=== PATIENT | female | born 1965 | race Caucasian/White ===

== ENCOUNTER → 2016-03-12 | Outpatient (CLI) | payer OTHER ==
[~2016-03-12] MED LIST: 'CLONIDINE0.1 MG PO; ASPIRIN ADULT L81 M2 PO; ATIVAN0.5 MG PO; ATORVASTATIN CA80 M1 PO; CELEXA10 MG PO; CHERATUSSIN AC240 ML PO; CIPRO500 MG PO; CLONIDINE HYDR0.1 MG PO; DICLOFENAC POTA50 MG PO; FINACEA15% T; HYDROCODONE BIT1 T11 PO; LISINOPRIL20 MG PO; LOPRESSOR50 MG PO; METOPROLOL TART50 M1 PO; NAPROSYN500 MG PO; NORCO 325 MG-51 TAB PO; OMEPRAZOLE40 MG PO; ORACEA40 MG PO; PEN-VK500 MG PO; PERCOCET 325 MG1 TA2 PO; PERIDEX 480 ML480 ML PO; PREDNISONE10 MG PO; PROVENTIL0.09 MG/A1 INH; TOPAMAX25 M3 PO; ZITHROMAX TRI-500 M1 PO; ZOFRAN4 MG PO; ZOLOFT25 MG PO
== END | disposition home or self-care (01) ==
LOC: US 08:53
DX: K80.20 Calculus of gallbladder without cholecystitis without obstruction (principal); R16.0 Hepatomegaly, not elsewhere classified; K76.0 Fatty (change of) liver, not elsewhere classified

== ENCOUNTER → 2016-07-07 | Outpatient (CLI) | payer OTHER | END | disposition home or self-care (01) | LOC: US 10:00 | DX: M79.604 Pain in right leg (principal) ==

== ENCOUNTER 2017-02-06 19:36 | Emergency (ER) | payer OTHER ==
[~2017-02-06] VITALS: Ht 170.1 cm; Wt 113.4 kg
== END 2017-02-06 21:34 | disposition home or self-care (01) ==
LOC: ED 19:36
DX: G89.29 Other chronic pain (principal); M25.562 Pain in left knee; M17.0 Bilateral primary osteoarthritis of knee; Z79.899 Other long term (current) drug therapy

== ENCOUNTER → 2017-02-18 | Outpatient (CLI) | payer OTHER ==
[2017-02-21 12:06] LABS: ANA DIRECT Negative (Negative)
[2017-02-21 21:05] LABS: CCP ANTIBODIES IGG/IGA 6 units (0-19)
== END | disposition home or self-care (01) ==
LOC: LAB 13:25
PROVIDERS: Internal Medicine
DX: M25.562 Pain in left knee (principal)

== ENCOUNTER → 2017-03-22 | Outpatient (CLI) | payer OTHER | END | disposition home or self-care (01) | LOC: ORTHO 00:38 | DX: M17.12 Unilateral primary osteoarthritis, left knee (principal) ==

== ENCOUNTER → 2017-07-25 | Outpatient (CLI) | payer OTHER ==
[2017-07-26 11:06] LABS: ANTI-DSDNA ANTIBODIES 096339 <1 IU/mL (0-9)
== END | disposition home or self-care (01) ==
LOC: LAB 14:11
PROVIDERS: Internal Medicine
DX: R21 Rash and other nonspecific skin eruption (principal)

== ENCOUNTER 2017-11-02 13:02 | Emergency (ER) | payer OTHER ==
[~2017-11-02] VITALS: Ht 175.2 cm; Wt 136.1 kg
[2017-11-02] MEDS ORDERED: DOXYCYCLINE100 M3 PO (14:37)
[2017-11-02] MEDS ORDERED: IBUPROFEN600 MG PO (14:37)
== END 2017-11-02 14:41 | disposition home or self-care (01) ==
LOC: ED 13:02
DX: S70.362A Insect bite (nonvenomous), left thigh, initial encounter (principal); L08.9 Local infection of the skin and subcutaneous tissue, unspecified; Z79.899 Other long term (current) drug therapy; W57.XXXA Bitten or stung by nonvenomous insect and other nonvenomous arthropods, initial encounter; Y93.89 Activity, other specified; Y92.89 Other specified places as the place of occurrence of the external cause; Y99.8 Other external cause status

== ENCOUNTER → 2017-11-15 | Outpatient (CLI) | payer OTHER ==
[~2017-11-15] MED LIST changes: +DOXYCYCLINE100 M3 PO; +IBUPROFEN600 MG PO
== END | disposition home or self-care (01) ==
LOC: US 06:13
DX: K76.0 Fatty (change of) liver, not elsewhere classified (principal); K80.20 Calculus of gallbladder without cholecystitis without obstruction

== ENCOUNTER → 2018-02-08 | Outpatient (CLI) | payer SELFPAY | END | disposition home or self-care (01) | LOC: RESCLI 04:09 | DX: E66.01 Morbid (severe) obesity due to excess calories (principal); I10 Essential (primary) hypertension; K21.9 Gastro-esophageal reflux disease without esophagitis; F32.9 Major depressive disorder, single episode, unspecified; R53.82 Chronic fatigue, unspecified; L65.9 Nonscarring hair loss, unspecified; Z79.899 Other long term (current) drug therapy; Z90.710 Acquired absence of both cervix and uterus; Z87.891 Personal history of nicotine dependence; Z88.2 Allergy status to sulfonamides ==

== ENCOUNTER → 2018-06-26 | Outpatient (CLI) | payer SELFPAY | END | disposition home or self-care (01) | LOC: RESCLI 00:44 | DX: K21.9 Gastro-esophageal reflux disease without esophagitis (principal); I10 Essential (primary) hypertension; E66.01 Morbid (severe) obesity due to excess calories; F32.9 Major depressive disorder, single episode, unspecified; R53.83 Other fatigue; L71.9 Rosacea, unspecified; J30.2 Other seasonal allergic rhinitis; Z68.42 Body mass index [BMI] 45.0-49.9, adult; Z87.891 Personal history of nicotine dependence ==

== ENCOUNTER → 2018-10-30 | Outpatient (CLI) | payer SELFPAY ==
[2018-10-30 08:41] LABS: BASO % 0.6 % (0.0-1.0); EOS # 0.1 10*3/uL (0.0-0.4); EOS % 1.4 % (1.0-4.0); HEMATOCRIT 39.8 % (37.0-47.0); LYMPH # 1.7 10*3/uL (1.3-4.4); LYMPH % 32.2 % (27.0-41.0); MEAN CELL VOLUME 91.1 fl (81.0-99.0); MEAN CORPUSCULAR HGB CONC 35.2 g/dl (33.0-37.0); MEAN PLATELET VOLUME 10.2 fl (9.6-12.3); MONO # 0.4 10*3/uL (0.1-1.0); MONO % 7.3 % (3.0-9.0); NEUT % 58.3 % (47.0-73.0); PLATELET COUNT AUTOMATED 198 10*3/uL (130-400); RED BLOOD COUNT 4.37 10*6/uL (4.10-5.10); RED CELL DISTRI WIDTH 13.1 % (0-14.5); WHITE BLOOD COUNT 5.2 10*3/uL (4.8-10.8)
[2018-10-30 09:04] LABS: ALBUMIN 3.9 gm/dl (3.1-4.5); BUN 8 mg/dl (7-24); CHLORIDE 94 mmol/L (98-107); POTASSIUM 3.6 mmol/L (3.5-5.1); SODIUM 132 mmol/L (136-145)
[2018-10-30 09:08] LABS: ALKALINE PHOSPHATASE 134 U/L (45-117); CHOLESTEROL 220 mg/dL (<200); CREATININE 0.66 mg/dL (0.55-1.02); HDL CHOLESTEROL 36 mg/dl (40-60); SGOT/AST 16 IU/L (3-35); SGPT/ALT 23 U/L (12-78); TOTAL PROTEIN 7.5 gm/dL (6.4-8.2); TRIGLYCERIDES 447 mg/dl (<150)
[2018-10-30 09:23] LABS: VITAMIN D, 25-HYDROXY 6.9 ng/mL (30-100)
== END | disposition home or self-care (01) ==
LOC: LAB 07:04
PROVIDERS: Internal Medicine
DX: R53.82 Chronic fatigue, unspecified (principal)

== ENCOUNTER → 2018-11-06 | Outpatient (CLI) | payer SELFPAY | END | disposition home or self-care (01) | LOC: RESCLI 01:27 | DX: M17.12 Unilateral primary osteoarthritis, left knee (principal); E66.01 Morbid (severe) obesity due to excess calories; M23.204 Derangement of unspecified medial meniscus due to old tear or injury, left knee; I10 Essential (primary) hypertension; K21.9 Gastro-esophageal reflux disease without esophagitis; F32.9 Major depressive disorder, single episode, unspecified; R53.82 Chronic fatigue, unspecified; L71.9 Rosacea, unspecified; J30.2 Other seasonal allergic rhinitis; E11.39 Type 2 diabetes mellitus with other diabetic ophthalmic complication; E78.2 Mixed hyperlipidemia; E55.9 Vitamin D deficiency, unspecified; Z79.899 Other long term (current) drug therapy ==

== ENCOUNTER → 2018-11-27 | Outpatient (CLI) | payer SELFPAY | END | disposition home or self-care (01) | LOC: RESCLI 01:43 | DX: M17.12 Unilateral primary osteoarthritis, left knee (principal); E66.01 Morbid (severe) obesity due to excess calories; M23.204 Derangement of unspecified medial meniscus due to old tear or injury, left knee; I10 Essential (primary) hypertension; K21.9 Gastro-esophageal reflux disease without esophagitis; F32.9 Major depressive disorder, single episode, unspecified; R53.82 Chronic fatigue, unspecified; L71.9 Rosacea, unspecified; J30.2 Other seasonal allergic rhinitis; E11.39 Type 2 diabetes mellitus with other diabetic ophthalmic complication; E78.2 Mixed hyperlipidemia; E55.9 Vitamin D deficiency, unspecified; Z79.899 Other long term (current) drug therapy ==

== ENCOUNTER → 2019-03-15 | Outpatient (CLI) | payer SELFPAY | END | disposition home or self-care (01) | LOC: RESCLI 00:39 | DX: I10 Essential (primary) hypertension (principal); E11.39 Type 2 diabetes mellitus with other diabetic ophthalmic complication; E78.2 Mixed hyperlipidemia; Z79.4 Long term (current) use of insulin; Z90.710 Acquired absence of both cervix and uterus; Z88.8 Allergy status to other drugs, medicaments and biological substances ==

== ENCOUNTER → 2019-09-19 | Outpatient (CLI) | payer SELFPAY | END | disposition home or self-care (01) | LOC: RESCLI 04:58 | DX: E11.39 Type 2 diabetes mellitus with other diabetic ophthalmic complication (principal); G62.9 Polyneuropathy, unspecified; I10 Essential (primary) hypertension; F32.9 Major depressive disorder, single episode, unspecified; R53.82 Chronic fatigue, unspecified; J30.2 Other seasonal allergic rhinitis; E55.9 Vitamin D deficiency, unspecified; F41.9 Anxiety disorder, unspecified; E78.5 Hyperlipidemia, unspecified; F10.10 Alcohol abuse, uncomplicated; R19.7 Diarrhea, unspecified; E66.01 Morbid (severe) obesity due to excess calories; Z68.42 Body mass index [BMI] 45.0-49.9, adult; Z79.899 Other long term (current) drug therapy; Z79.84 Long term (current) use of oral hypoglycemic drugs; Z90.710 Acquired absence of both cervix and uterus; Z98.51 Tubal ligation status; Z88.8 Allergy status to other drugs, medicaments and biological substances ==

== ENCOUNTER → 2019-10-17 | Outpatient (CLI) | payer SELFPAY ==
[2019-10-17 08:18] LABS: BASO % 0.4 % (0.0-1.0); EOS # 0.1 10*3/uL (0.0-0.4); EOS % 0.7 % (1.0-4.0); HEMATOCRIT 44.5 % (37.0-47.0); LYMPH # 1.4 10*3/uL (1.3-4.4); LYMPH % 19.9 % (27.0-41.0); MEAN CELL VOLUME 93.1 fl (81.0-99.0); MEAN CORPUSCULAR HGB 30.5 pg (27.0-31.0); MEAN CORPUSCULAR HGB CONC 32.8 g/dl (33.0-37.0); MEAN PLATELET VOLUME 9.7 fl (9.6-12.3); MONO # 0.5 10*3/uL (0.1-1.0); MONO % 6.5 % (3.0-9.0); NEUT # 5.2 10*3/uL (2.3-7.9); NEUT % 71.9 % (47.0-73.0); PLATELET COUNT AUTOMATED 201 10*3/uL (130-400); RED BLOOD COUNT 4.78 10*6/uL (4.10-5.10); RED CELL DISTRI WIDTH 12.2 % (0-14.5); WHITE BLOOD COUNT 7.2 10*3/uL (4.8-10.8)
[2019-10-17 08:43] LABS: ALBUMIN 3.6 gm/dl (3.1-4.5); ALKALINE PHOSPHATASE 126 U/L (45-117); BUN 15 mg/dl (7-24); CHLORIDE 104 mmol/L (98-107); CHOLESTEROL 145 mg/dL (<200); CREATININE 0.81 mg/dL (0.55-1.02); HDL CHOLESTEROL 35 mg/dl (40-60); LDL CHOLESTEROL 76 mg/dL (9-159); LIPASE 125 U/L (73-393); SGOT/AST 39 IU/L (3-35); SGPT/ALT 58 U/L (12-78); SODIUM 139 mmol/L (136-145); TOTAL PROTEIN 7.8 gm/dL (6.4-8.2); TRIGLYCERIDES 172 mg/dl (<150); VLDL CHOLESTEROL 34 mg/dL (6-40)
[2019-10-17 09:25] LABS: VITAMIN D, 25-HYDROXY 30.5 ng/mL (30-100)
== END ==
LOC: LAB 07:57
PROVIDERS: Hospitalist; ATTEND Internal Medicine Nephrology
DX: E11.39 Type 2 diabetes mellitus with other diabetic ophthalmic complication (principal)

== ENCOUNTER → 2019-10-23 | Outpatient (CLI) | payer SELFPAY | END | disposition home or self-care (01) | LOC: RESCLI 02:07 | PROVIDERS: ATTEND Internal Medicine Nephrology | DX: T21.02XA Burn of unspecified degree of abdominal wall, initial encounter (principal); R19.7 Diarrhea, unspecified; I10 Essential (primary) hypertension; K21.9 Gastro-esophageal reflux disease without esophagitis; E11.39 Type 2 diabetes mellitus with other diabetic ophthalmic complication; E55.9 Vitamin D deficiency, unspecified; G62.9 Polyneuropathy, unspecified; F41.9 Anxiety disorder, unspecified; F10.10 Alcohol abuse, uncomplicated; F32.9 Major depressive disorder, single episode, unspecified; E78.5 Hyperlipidemia, unspecified; Z79.899 Other long term (current) drug therapy; Z98.890 Other specified postprocedural states; Z88.8 Allergy status to other drugs, medicaments and biological substances ==

== ENCOUNTER → 2019-11-28 | Outpatient (CLI) | payer SELFPAY | END | disposition home or self-care (01) | LOC: RESCLI 01:56 | PROVIDERS: ATTEND Internal Medicine | DX: Z23 Encounter for immunization (principal); I10 Essential (primary) hypertension; K21.9 Gastro-esophageal reflux disease without esophagitis; E11.43 Type 2 diabetes mellitus with diabetic autonomic (poly)neuropathy; E78.5 Hyperlipidemia, unspecified; R21 Rash and other nonspecific skin eruption; E55.9 Vitamin D deficiency, unspecified; G62.9 Polyneuropathy, unspecified; F33.2 Major depressive disorder, recurrent severe without psychotic features; F41.9 Anxiety disorder, unspecified; F10.10 Alcohol abuse, uncomplicated; Z79.4 Long term (current) use of insulin ==

== ENCOUNTER → 2019-12-30 | Outpatient (CLI) | payer SELFPAY | END | disposition home or self-care (01) | LOC: US 12-20 08:30 | PROVIDERS: ATTEND Internal Medicine Nephrology | DX: K76.0 Fatty (change of) liver, not elsewhere classified (principal); K80.20 Calculus of gallbladder without cholecystitis without obstruction ==

== ENCOUNTER → 2020-02-06 | Outpatient (CLI) | payer SELFPAY | END | disposition home or self-care (01) | LOC: RESCLI 05:10 | PROVIDERS: ATTEND Internal Medicine | DX: I10 Essential (primary) hypertension (principal); K21.9 Gastro-esophageal reflux disease without esophagitis; E11.43 Type 2 diabetes mellitus with diabetic autonomic (poly)neuropathy; F41.9 Anxiety disorder, unspecified; E78.5 Hyperlipidemia, unspecified; F10.10 Alcohol abuse, uncomplicated; E55.9 Vitamin D deficiency, unspecified; R74.01 Elevation of levels of liver transaminase levels; G62.9 Polyneuropathy, unspecified; F33.2 Major depressive disorder, recurrent severe without psychotic features; J30.2 Other seasonal allergic rhinitis; K80.20 Calculus of gallbladder without cholecystitis without obstruction; K76.0 Fatty (change of) liver, not elsewhere classified; Z79.4 Long term (current) use of insulin; Z79.899 Other long term (current) drug therapy; Z88.8 Allergy status to other drugs, medicaments and biological substances ==

== ENCOUNTER → 2020-03-30 | Outpatient (CLI) | payer SELFPAY | END | disposition home or self-care (01) | LOC: COVID19 09:08 | PROVIDERS: ATTEND Social Worker Clinical | DX: U07.1 COVID-19 (principal) ==

== ENCOUNTER → 2020-07-27 | Outpatient (CLI) | payer SELFPAY | END | disposition home or self-care (01) | LOC: RESCLI 01:48 | PROVIDERS: ATTEND Internal Medicine Nephrology | DX: L71.9 Rosacea, unspecified (principal); I10 Essential (primary) hypertension; K21.9 Gastro-esophageal reflux disease without esophagitis; K76.0 Fatty (change of) liver, not elsewhere classified; Z90.710 Acquired absence of both cervix and uterus; Z98.51 Tubal ligation status; Z98.890 Other specified postprocedural states; Z79.899 Other long term (current) drug therapy ==

== ENCOUNTER → 2020-09-10 | Outpatient (CLI) | payer MEDICARE | END | disposition home or self-care (01) | LOC: RESCLI 06:40 | PROVIDERS: ATTEND Internal Medicine | DX: H60.321 Hemorrhagic otitis externa, right ear (principal); L71.9 Rosacea, unspecified; J30.2 Other seasonal allergic rhinitis; E55.9 Vitamin D deficiency, unspecified; F41.9 Anxiety disorder, unspecified; F32.9 Major depressive disorder, single episode, unspecified; E11.43 Type 2 diabetes mellitus with diabetic autonomic (poly)neuropathy; K21.9 Gastro-esophageal reflux disease without esophagitis; F10.10 Alcohol abuse, uncomplicated; I10 Essential (primary) hypertension; G62.9 Polyneuropathy, unspecified; E78.5 Hyperlipidemia, unspecified; Z79.899 Other long term (current) drug therapy; Z98.890 Other specified postprocedural states; Z88.8 Allergy status to other drugs, medicaments and biological substances; Z98.51 Tubal ligation status; Z90.710 Acquired absence of both cervix and uterus ==

== ENCOUNTER → 2020-10-15 | Outpatient (CLI) | payer MEDICARE | END | disposition home or self-care (01) | LOC: RESCLI 00:19 | PROVIDERS: ATTEND Internal Medicine | DX: L71.9 Rosacea, unspecified (principal); F32.9 Major depressive disorder, single episode, unspecified; I10 Essential (primary) hypertension; E55.9 Vitamin D deficiency, unspecified; F41.9 Anxiety disorder, unspecified; E11.43 Type 2 diabetes mellitus with diabetic autonomic (poly)neuropathy; F10.10 Alcohol abuse, uncomplicated; E78.5 Hyperlipidemia, unspecified; J30.2 Other seasonal allergic rhinitis; K21.9 Gastro-esophageal reflux disease without esophagitis; I83.93 Asymptomatic varicose veins of bilateral lower extremities; Z87.891 Personal history of nicotine dependence; Z79.899 Other long term (current) drug therapy ==

== ENCOUNTER → 2020-11-30 | Outpatient (CLI) | payer MEDICARE | END | disposition home or self-care (01) | LOC: US 11-23 11:00 | PROVIDERS: ATTEND Internal Medicine Nephrology | DX: I83.893 Varicose veins of bilateral lower extremities with other complications (principal) ==

== ENCOUNTER → 2020-12-30 | Outpatient (CLI) | payer MEDICARE | END | disposition home or self-care (01) | LOC: RESCLI 00:58 | PROVIDERS: ATTEND Internal Medicine Nephrology | DX: L71.9 Rosacea, unspecified (principal); F32.9 Major depressive disorder, single episode, unspecified; I10 Essential (primary) hypertension; E55.9 Vitamin D deficiency, unspecified; F41.9 Anxiety disorder, unspecified; E11.43 Type 2 diabetes mellitus with diabetic autonomic (poly)neuropathy; F10.10 Alcohol abuse, uncomplicated; E78.5 Hyperlipidemia, unspecified; J30.2 Other seasonal allergic rhinitis; K21.9 Gastro-esophageal reflux disease without esophagitis; I83.93 Asymptomatic varicose veins of bilateral lower extremities; G62.9 Polyneuropathy, unspecified; Z79.899 Other long term (current) drug therapy; Z98.890 Other specified postprocedural states ==

== ENCOUNTER → 2021-05-19 | Outpatient (CLI) | payer MEDICARE | END | disposition home or self-care (01) | LOC: RESCLI 01:16 | PROVIDERS: ATTEND Internal Medicine Nephrology | DX: I10 Essential (primary) hypertension (principal); F32.9 Major depressive disorder, single episode, unspecified; L71.9 Rosacea, unspecified; E11.43 Type 2 diabetes mellitus with diabetic autonomic (poly)neuropathy; K21.9 Gastro-esophageal reflux disease without esophagitis; F10.10 Alcohol abuse, uncomplicated; K76.0 Fatty (change of) liver, not elsewhere classified; E78.5 Hyperlipidemia, unspecified; Z79.899 Other long term (current) drug therapy ==

== ENCOUNTER → 2021-09-06 | Outpatient (CLI) | payer MEDICARE ==
[2021-09-06 10:37] LABS: BASO % 0.3 % (0.0-1.0); HEMATOCRIT 42.8 % (37.0-47.0); LYMPH # 1.7 10*3/uL (1.3-4.4); LYMPH % 22.2 % (27.0-41.0); MEAN CELL VOLUME 92.6 fl (81.0-99.0); MEAN CORPUSCULAR HGB 31.8 pg (27.0-31.0); MEAN CORPUSCULAR HGB CONC 34.3 g/dl (33.0-37.0); MEAN PLATELET VOLUME 9.4 fl (9.6-12.3); MONO # 0.5 10*3/uL (0.1-1.0); MONO % 6.3 % (3.0-9.0); NEUT # 5.4 10*3/uL (2.3-7.9); NEUT % 70.5 % (47.0-73.0); PLATELET COUNT AUTOMATED 166 10*3/uL (130-400); RED BLOOD COUNT 4.62 10*6/uL (4.10-5.10); WHITE BLOOD COUNT 7.7 10*3/uL (4.8-10.8)
[2021-09-06 10:57] LABS: BUN 16 mg/dl (7-24); CHLORIDE 101 mmol/L (98-107); CHOLESTEROL 139 mg/dL (<200); CREATININE 0.79 mg/dL (0.55-1.02); POTASSIUM 4.4 mmol/L (3.5-5.1); SGOT/AST 21 IU/L (3-35); SGPT/ALT 37 U/L (12-78); SODIUM 137 mmol/L (136-145); TRIGLYCERIDES 155 mg/dl (<150)
[2021-09-06 11:07] LABS: ALKALINE PHOSPHATASE 104 U/L (45-117); LDL CHOLESTEROL 70 mg/dL (9-159); TOTAL PROTEIN 7.9 gm/dL (6.4-8.2)
[2021-09-06 12:04] LABS: VITAMIN D, 25-HYDROXY 34.6 ng/mL (30-100)
== END | disposition home or self-care (01) ==
LOC: RESCLI 04:24 → LAB 04:24 → RESCLI 18:13
PROVIDERS: Student in an Organized Health Care Education/Training Program; ATTEND Internal Medicine
DX: E11.39 Type 2 diabetes mellitus with other diabetic ophthalmic complication (principal); I10 Essential (primary) hypertension; E55.9 Vitamin D deficiency, unspecified; E66.01 Morbid (severe) obesity due to excess calories; F32.9 Major depressive disorder, single episode, unspecified; E11.43 Type 2 diabetes mellitus with diabetic autonomic (poly)neuropathy; F41.9 Anxiety disorder, unspecified; L71.9 Rosacea, unspecified; G62.9 Polyneuropathy, unspecified; E78.5 Hyperlipidemia, unspecified; J30.2 Other seasonal allergic rhinitis; Z12.39 Encounter for other screening for malignant neoplasm of breast; R21 Rash and other nonspecific skin eruption; M17.0 Bilateral primary osteoarthritis of knee; Z79.899 Other long term (current) drug therapy; Z88.8 Allergy status to other drugs, medicaments and biological substances; Z90.710 Acquired absence of both cervix and uterus

== ENCOUNTER → 2021-12-09 | Outpatient (CLI) | payer MEDICARE ==
[2021-12-10 11:07] LABS: CREATININE,URINE 47.1 mg/dL (Not Estab.)
== END | disposition home or self-care (01) ==
LOC: RESCLI 09:06
PROVIDERS: Student in an Organized Health Care Education/Training Program; ATTEND Emergency Medicine
DX: E11.43 Type 2 diabetes mellitus with diabetic autonomic (poly)neuropathy (principal); F10.10 Alcohol abuse, uncomplicated; F41.9 Anxiety disorder, unspecified; E78.5 Hyperlipidemia, unspecified; E55.9 Vitamin D deficiency, unspecified; F32.9 Major depressive disorder, single episode, unspecified; L71.9 Rosacea, unspecified; I10 Essential (primary) hypertension; K21.9 Gastro-esophageal reflux disease without esophagitis; G62.9 Polyneuropathy, unspecified; R21 Rash and other nonspecific skin eruption; K43.2 Incisional hernia without obstruction or gangrene; Z90.710 Acquired absence of both cervix and uterus; Z98.890 Other specified postprocedural states; Z82.49 Family history of ischemic heart disease and other diseases of the circulatory system; Z87.891 Personal history of nicotine dependence; Z72.89 Other problems related to lifestyle; Z79.899 Other long term (current) drug therapy

== ENCOUNTER → 2022-03-11 | Outpatient (CLI) | payer MEDICARE | END | disposition home or self-care (01) | LOC: LAB 12:59 | PROVIDERS: ATTEND Student in an Organized Health Care Education/Training Program | DX: E11.43 Type 2 diabetes mellitus with diabetic autonomic (poly)neuropathy (principal) ==

== ENCOUNTER → 2022-03-28 | Outpatient (CLI) | payer MEDICARE ==
[2022-03-28 12:18] LABS: BILIRUBIN Negative (Negative); BLOOD Negative (Negative); CLARITY Clear (Clear); COLOR Yellow (Yellow); GLUCOSE 3+ (Negative); KETONE Trace (Negative); LEUKO ESTERASE Negative (Negative); NITRITE Negative (Negative); SPECIFIC GRAVITY >= 1.030 (1.001-1.030)
[2022-03-28 12:35] LABS: BACTERIA TRACE; WBC 0-2 wbc/hpf (0-5)
[2022-03-28 12:36] LABS: YEAST TRACE
== END | disposition home or self-care (01) ==
LOC: RESCLI 11:42
PROVIDERS: Student in an Organized Health Care Education/Training Program; ATTEND Internal Medicine
DX: E11.43 Type 2 diabetes mellitus with diabetic autonomic (poly)neuropathy (principal); N30.90 Cystitis, unspecified without hematuria; I10 Essential (primary) hypertension; F32.A Depression, unspecified; K76.0 Fatty (change of) liver, not elsewhere classified; K40.90 Unilateral inguinal hernia, without obstruction or gangrene, not specified as recurrent; Z82.49 Family history of ischemic heart disease and other diseases of the circulatory system; Z90.710 Acquired absence of both cervix and uterus; Z98.890 Other specified postprocedural states; Z72.89 Other problems related to lifestyle; Z79.899 Other long term (current) drug therapy

== ENCOUNTER → 2022-05-23 | Outpatient (CLI) | payer OTHER, MEDICARE | END | disposition home or self-care (01) | LOC: RESCLI 00:36 | PROVIDERS: ATTEND Family Medicine | DX: E11.43 Type 2 diabetes mellitus with diabetic autonomic (poly)neuropathy (principal); I10 Essential (primary) hypertension; E55.9 Vitamin D deficiency, unspecified; F10.10 Alcohol abuse, uncomplicated; F32.9 Major depressive disorder, single episode, unspecified; E78.5 Hyperlipidemia, unspecified; G62.9 Polyneuropathy, unspecified; L71.9 Rosacea, unspecified; K21.9 Gastro-esophageal reflux disease without esophagitis; E66.01 Morbid (severe) obesity due to excess calories; Z12.39 Encounter for other screening for malignant neoplasm of breast; Z68.41 Body mass index [BMI] 40.0-44.9, adult; Z98.890 Other specified postprocedural states; Z72.89 Other problems related to lifestyle; Z82.49 Family history of ischemic heart disease and other diseases of the circulatory system; Z90.710 Acquired absence of both cervix and uterus; Z79.899 Other long term (current) drug therapy ==

== ENCOUNTER → 2022-08-22 | Outpatient (CLI) | payer OTHER | END | disposition home or self-care (01) | LOC: LAB 14:17 | PROVIDERS: ATTEND Student in an Organized Health Care Education/Training Program | DX: E11.43 Type 2 diabetes mellitus with diabetic autonomic (poly)neuropathy (principal) ==

== ENCOUNTER → 2022-08-25 | Outpatient (CLI) | payer OTHER | END | disposition home or self-care (01) | LOC: RESCLI 08:34 | PROVIDERS: ATTEND Internal Medicine | DX: F32.9 Major depressive disorder, single episode, unspecified (principal); E11.43 Type 2 diabetes mellitus with diabetic autonomic (poly)neuropathy; E55.9 Vitamin D deficiency, unspecified; I10 Essential (primary) hypertension; Z01.818 Encounter for other preprocedural examination; E66.9 Obesity, unspecified; L71.9 Rosacea, unspecified; G62.9 Polyneuropathy, unspecified; Z82.49 Family history of ischemic heart disease and other diseases of the circulatory system; Z98.890 Other specified postprocedural states; Z79.899 Other long term (current) drug therapy ==

== ENCOUNTER → 2022-09-15 | Day surgery (SDC) | payer OTHER ==
[~2022-09-15] VITALS: Ht 175.2 cm; Wt 121.1 kg
[~2022-09-15] MED LIST changes: +EFFEXOR XR75 M1 PO; +FENOFIBRATE160 MG PO; +GRALISE300 M1 PO; +JARDIANCE25 MG PO; +NATURE'S BLEND F1 MG PO; +OLANZAPINE10 MG PO; +PROTONIX40 M1 IV; +VICTOZA 2-0.6 MG/0.1 SQ; +VITAMIN B150 MG PO; +VITAMIN D350 MCG PO
[2022-09-15 07:25] VITALS: BP 111/72
[2022-09-15 08:21] VITALS: BP 145/86
[2022-09-15 08:36] VITALS: BP 144/71
[2022-09-15 08:51] VITALS: BP 136/63
== END ==
LOC: SDC 09-12 08:45
PROVIDERS: ATTEND Surgery
DX: Z12.11 Encounter for screening for malignant neoplasm of colon (principal); K29.50 Unspecified chronic gastritis without bleeding; K21.9 Gastro-esophageal reflux disease without esophagitis; K29.70 Gastritis, unspecified, without bleeding; K57.90 Diverticulosis of intestine, part unspecified, without perforation or abscess without bleeding; I10 Essential (primary) hypertension; F32.A Depression, unspecified; K76.0 Fatty (change of) liver, not elsewhere classified; M17.12 Unilateral primary osteoarthritis, left knee; K43.2 Incisional hernia without obstruction or gangrene; Z90.710 Acquired absence of both cervix and uterus; Z98.51 Tubal ligation status; Z98.890 Other specified postprocedural states; Z79.899 Other long term (current) drug therapy

== ENCOUNTER → 2023-01-26 | Outpatient (CLI) | payer OTHER | END | disposition home or self-care (01) | LOC: RESCLI 11:46 | PROVIDERS: ATTEND Internal Medicine | DX: E78.5 Hyperlipidemia, unspecified (principal); I10 Essential (primary) hypertension; E11.43 Type 2 diabetes mellitus with diabetic autonomic (poly)neuropathy; E55.9 Vitamin D deficiency, unspecified; Z12.39 Encounter for other screening for malignant neoplasm of breast; M19.90 Unspecified osteoarthritis, unspecified site; F32.9 Major depressive disorder, single episode, unspecified; K21.9 Gastro-esophageal reflux disease without esophagitis; L71.9 Rosacea, unspecified; G62.9 Polyneuropathy, unspecified; F10.10 Alcohol abuse, uncomplicated; E66.9 Obesity, unspecified; Z90.710 Acquired absence of both cervix and uterus; Z98.890 Other specified postprocedural states; Z87.891 Personal history of nicotine dependence; Z82.49 Family history of ischemic heart disease and other diseases of the circulatory system; Z79.899 Other long term (current) drug therapy ==

== ENCOUNTER → 2023-06-20 | Outpatient (CLI) | payer OTHER | END | disposition home or self-care (01) | LOC: RESCLI 01:15 | PROVIDERS: ATTEND Student in an Organized Health Care Education/Training Program | DX: E11.43 Type 2 diabetes mellitus with diabetic autonomic (poly)neuropathy (principal); I10 Essential (primary) hypertension; F32.9 Major depressive disorder, single episode, unspecified; K21.9 Gastro-esophageal reflux disease without esophagitis; K76.0 Fatty (change of) liver, not elsewhere classified; E78.5 Hyperlipidemia, unspecified; G62.9 Polyneuropathy, unspecified; E55.9 Vitamin D deficiency, unspecified; L71.9 Rosacea, unspecified; F10.10 Alcohol abuse, uncomplicated; Z79.899 Other long term (current) drug therapy; Z98.890 Other specified postprocedural states; Z82.49 Family history of ischemic heart disease and other diseases of the circulatory system; Z83.3 Family history of diabetes mellitus; Z87.891 Personal history of nicotine dependence ==

== ENCOUNTER → 2023-09-22 | Outpatient (CLI) | payer OTHER ==
[2023-09-22 08:06] LABS: BASO % 0.2 % (0.0-1.0); HEMATOCRIT 42.8 % (37.0-47.0); LYMPH # 1.3 10*3/uL (1.3-4.4); LYMPH % 26.8 % (27.0-41.0); MEAN CELL VOLUME 96.2 fl (81.0-99.0); MEAN CORPUSCULAR HGB 32.1 pg (27.0-31.0); MEAN CORPUSCULAR HGB CONC 33.4 g/dl (33.0-37.0); MEAN PLATELET VOLUME 9.3 fl (9.6-12.3); MONO # 0.3 10*3/uL (0.1-1.0); MONO % 5.8 % (3.0-9.0); NEUT # 3.3 10*3/uL (2.3-7.9); NEUT % 66.6 % (47.0-73.0); PLATELET COUNT AUTOMATED 150 10*3/uL (130-400); RED BLOOD COUNT 4.45 10*6/uL (4.10-5.10)
[2023-09-22 08:20] LABS: URINE CREATININE RANDOM 47.47 mg/dL
[2023-09-22 09:14] LABS: ALKALINE PHOSPHATASE 95 U/L (46-116); BUN 13 mg/dl (9-23); CHLORIDE 101 mmol/L (98-107); CHOLESTEROL 131 mg/dL (<200); LDL CHOLESTEROL 36 mg/dL (9-159); POTASSIUM 4.5 mmol/L (3.4-5.1); SGPT/ALT 43 U/L (5-49); TOTAL PROTEIN 7.7 gm/dL (6.0-8.0); TRIGLYCERIDES 321 mg/dl (<150)
== END | disposition home or self-care (01) ==
LOC: LAB 07:49
PROVIDERS: ATTEND Internal Medicine
DX: I10 Essential (primary) hypertension (principal); E11.43 Type 2 diabetes mellitus with diabetic autonomic (poly)neuropathy; E78.5 Hyperlipidemia, unspecified; E55.9 Vitamin D deficiency, unspecified

== ENCOUNTER → 2023-09-26 | Outpatient (CLI) | payer OTHER | END | disposition home or self-care (01) | LOC: RESCLI 00:31 | PROVIDERS: ATTEND Internal Medicine | DX: E11.43 Type 2 diabetes mellitus with diabetic autonomic (poly)neuropathy (principal); E55.9 Vitamin D deficiency, unspecified; K21.9 Gastro-esophageal reflux disease without esophagitis; L71.9 Rosacea, unspecified; F32.9 Major depressive disorder, single episode, unspecified; I10 Essential (primary) hypertension; E78.5 Hyperlipidemia, unspecified; F10.10 Alcohol abuse, uncomplicated; Z98.890 Other specified postprocedural states; Z90.710 Acquired absence of both cervix and uterus; Z79.899 Other long term (current) drug therapy ==

== ENCOUNTER → 2023-12-15 | Outpatient (CLI) | payer OTHER | END | disposition home or self-care (01) | LOC: ORTHO 00:55 | PROVIDERS: ATTEND Orthopaedic Surgery | DX: M17.0 Bilateral primary osteoarthritis of knee (principal); M25.561 Pain in right knee ==

== ENCOUNTER → 2024-05-30 | Outpatient (CLI) | payer OTHER ==
[2024-05-30 12:33] LABS: BASO % 0.3 % (0.0-1.0); HEMATOCRIT 41.6 % (37.0-47.0); MEAN CELL VOLUME 95.2 fl (81.0-99.0); MEAN CORPUSCULAR HGB CONC 33.7 g/dl (33.0-37.0); MEAN PLATELET VOLUME 9.9 fl (9.6-12.3); MONO # 0.4 10*3/uL (0.1-1.0); MONO % 5.5 % (3.0-9.0); NEUT # 5.3 10*3/uL (2.3-7.9); NEUT % 69.2 % (47.0-73.0); PLATELET COUNT AUTOMATED 179 10*3/uL (130-400); RED BLOOD COUNT 4.37 10*6/uL (4.10-5.10); RED CELL DISTRI WIDTH 12.6 % (0-14.5); WHITE BLOOD COUNT 7.6 10*3/uL (4.8-10.8)
[2024-05-30 12:39] LABS: ALKALINE PHOSPHATASE 83 U/L (46-116); BUN 16 mg/dl (9-23); CHLORIDE 101 mmol/L (98-107); POTASSIUM 4.5 mmol/L (3.4-5.1); SGPT/ALT 54 U/L (5-49); TOTAL PROTEIN 7.3 gm/dL (6.0-8.0)
== END | disposition home or self-care (01) ==
LOC: RESCLI 11:05 → LAB 11:05
PROVIDERS: ATTEND Internal Medicine
DX: E11.43 Type 2 diabetes mellitus with diabetic autonomic (poly)neuropathy (principal); I10 Essential (primary) hypertension; E78.5 Hyperlipidemia, unspecified; F32.9 Major depressive disorder, single episode, unspecified; F10.10 Alcohol abuse, uncomplicated; K21.9 Gastro-esophageal reflux disease without esophagitis; E55.9 Vitamin D deficiency, unspecified; Z79.4 Long term (current) use of insulin; Z98.890 Other specified postprocedural states; Z90.710 Acquired absence of both cervix and uterus; Z79.899 Other long term (current) drug therapy

== ENCOUNTER 2024-10-19 10:44 | Emergency (ER) | payer OTHER ==
[~2024-10-19] VITALS: Ht 175.2 cm
[2024-10-19] MEDS ORDERED: Acetaminophen/Hydrocodone HP 10/325 PO ONE (11:05)
[2024-10-19] MEDS ORDERED: Ondansetron Hydrochloride 4 MG TAB SL ONE (11:15)
[2024-10-19] MEDS ORDERED: Ondansetron4 MG PO (12:21)
[2024-10-19] MEDS ORDERED: HYDROCODONE-AC1 EACH PO (12:21)
[2024-10-19] MEDS ORDERED: Acetaminophen/Hydrocodone 5 MG/325 MG TABLET PO ONE (12:25)
== END 2024-10-19 12:31 | disposition home or self-care (01) ==
LOC: ED 10:44
DX: S43.402A Unspecified sprain of left shoulder joint, initial encounter (principal); S70.12XA Contusion of left thigh, initial encounter; S00.212A Abrasion of left eyelid and periocular area, initial encounter; Z79.899 Other long term (current) drug therapy; Z98.890 Other specified postprocedural states; Z90.710 Acquired absence of both cervix and uterus; W01.0XXA Fall on same level from slipping, tripping and stumbling without subsequent striking against object, initial encounter; Y93.89 Activity, other specified; Y92.091 Bathroom in other non-institutional residence as the place of occurrence of the external cause; Y99.8 Other external cause status